=== PATIENT | female | born 1990 | race Caucasian/White ===

== ENCOUNTER 2024-02-02 07:31 | Inpatient (IN) ==
[2024-02-02] MEDS ORDERED: INSULIN REGULAR 250 UNITS in SODIUM CHLORIDE 0.9% 247.5 ML IV PRN (07:42)
[2024-02-02] MEDS ORDERED: DEXTROSE 5% 1,000 ML IV PRN (07:42)
[2024-02-02] MEDS ORDERED: DEXTROSE 50% 50 ML SYRINGE IV PRN (07:42)
[2024-02-02] MEDS ORDERED: SODIUM CHLORIDE 0.9% 1,000 ML IV PRN (07:42)
[2024-02-02] MEDS ORDERED: OXYTOCIN 30 UNITS/NSS 30 UNITS/500 ML BAG IV PRN ×3 (07:42→22:06)
[2024-02-02] MEDS ORDERED: LIDOCAINE 1% LOCAL 20 ML VIAL INFIL PRN (07:42)
[2024-02-02] MEDS ORDERED: Patient's HEIGHT &/or WEIGHT Needed SCH (08:00)
[2024-02-02 08:07] LABS: Hematocrit (blood only) 33.4 % (37.0-47.0); Hemoglobin 11.3 g/dl (12.0-16.0); Mean Corpuscular Hemoglobin 30.6 pg (25.0-34.0); Mean Corpuscular Hgb Conc 33.8 g/dL (32.0-36.0); Mean Corpuscular Volume 90.5 fL (80.0-100.0); Mean Platelet Volume 11.1 fL (9.4-12.4); Platelet Count 217 K/uL (130-400); RDW Coefficient of Variation 12.8 % (11.5-14.5); RDW Standard Deviation 41.5 fL (36.4-46.3); Red Blood Count 3.69 M/uL (4.20-5.40); White Blood Count 8.05 K/ul (4.8-10.8)
[2024-02-02] MEDS: LACTATED RINGER'S 1,000 ML IV PRN (09:03)
[2024-02-02] MEDS: OXYTOCIN 30 UNITS/NSS 30 UNITS/500 ML BAG IV PRN (09:08)
--- NOTE | 2024-02-02 09:41 | History & Physical Report ---
Date of Service February 02, 2024 Assessment & Plan (1) Encounter for induction of labor: Plan: Patient is a 33yo at 38w1d here admitted for induction of labor. Diop bulb placed Receiving Pitocin Receiving LR 1L, 125cc/hr AROM when indicated Monitor tracing, currently category 1 Admission and Anticipated Discharge Date Admission Date: February 02, 2024 History of Present Illness Chief Complaint: induction of labor Primary Care Provider: Katherine Landaverde PA-C Patient is a 33yo at 38w1d here admitted for induction of labor. Has gestational DM treated by nightly insulin, otherwise endorses has been relatively uneventful and uncomplicated. Diop bulb placed this AM. Patient endorses baby has been moving frequently. Notes intermittent contractions. Denies vaginal bleeding or other vaginal discharge. Had a normal bowel movement this morning, urination this morning as well. Denies any recent fever, body aches, chills, headache, vision changes, chest pain, SOB, abdominal pain, LE pain/swelling, or numbness/tingling. GBS neg, Rh+, T. pallidum neg Allergies Allergy/AdvReac Type Severity Reaction Status Date / Time No Known Allergies Allergy Verified 02/01/24 10:59 Home Medications Medication Instructions Recorded Confirmed Type acetone (urine) test (Ketone Urine #50 ea 08/24/23 02/01/24 Rx Test strips) blood sugar diagnostic (OneTouch #150 ea 08/24/23 02/01/24 Rx Verio test strips) lancets 33 gauge (OneTouch Delica #150 ea 08/24/23 02/01/24 Rx Plus Lancet) blood-glucose meter (OneTouch #1 ea 08/25/23 02/01/24 Rx Verio Reflect Meter) vits no.124-ferrous fum 1 tab PO DAILY 09/27/23 02/01/24 History 27 mg iron-folic acid 800 mcg tablet ( Vitamin) ferrous sulfate, dried 160 mg (50 160 mg PO DAILY 10/06/23 02/01/24 History mg iron) tablet,extended release pen needle, diabetic 32 gauge x #100 ea 10/12/23 02/01/24 Rx 5/32" (BD Corina 2nd Gen Pen Needle) insulin NPH isoph U-100 human 100 See Rx Instructions .Route 08/16/24 10/21/24 Rx unit/mL (3 mL) subcutaneous pen .COMPLEX #15 mL (Novolin N FlexPen) Patient History Medical History Human papilloma virus Anemia Anxiety History of chicken pox Surgical History H/O LEEP 2013, also hx of abnl paps in the 2007- Hx of tonsillectomy Family History Aunt Breast cancer paternal Grandmother (Maternal) Breast cancer Father Pancreatic cancer metastasized to intra-abdominal lymph node Mother Atrial fibrillation Tricuspid incompetence Denies family history of Ovarian cancer Prostate cancer Myocardial infarction Colorectal cancer Social History (Updated 02/02/24 @ 10:20 by Diogenes Salazar DO) Smoking Status: Never smoker Second Hand Exposure: No; Do You Dip or Chew Tobacco: No; Tobacco Cessation Education Requested by Patient: No Hx Alcohol Use: No Hx Substance Use: No Preferred Language: Uzbek Communication Ability: Effective Hearing Ability: Normal Centrifuge Separator Operator Required: No Beliefs That Will Affect Care: None marital status: marital status details: Samir Olson [phone] Current Living Situation: Spouse Current Living Situation Comment: - Snow Dawson- 4 y/o current occupational status: employed current occupation: Stylist How many Children do You have: 1 Other Information That Helps Us Care for You: No Feels Safe at Home: Yes Safety Concerns: Feels Safe At This Time Assistive Devices: None Review of Systems per HPI Physical Exam Physical Exam: General: A&Ox4, resting comfortably in NAD, nontoxic in appearance Skin: warm, dry, intact HEENT: NC/AT, anicteric sclerae, conjunctiva w/o injection, moist mucous membranes Heart: +s1/s2, RRR, no m/r/g Lungs: equal air entry b/l, clear to auscultation b/l, no wheeze, rales, or rhonchi Abd: +BS, gravid, mild tenderness to palpation, no erythema or lesions Cervical: 1.5/50/-2, mid, soft; est weight 7lbs Ext: no significant swelling, no erythema or tenderness to palpation; no cyanosis or clubbing Neuro: speech intact, no facial droop, moves all extremities on command : 145 baseline HR , moderate variability, accelerations present, decelerations absent Results & Data Vital Signs (Past 12 Hours) Vital Signs Temp Pulse Resp BP 02/02/24 09:29 85 104/71 02/02/24 09:14 88 117/80 02/02/24 07:54 95 H 139/89 02/02/24 07:49 36.7 C 95 H 16 139/89 Supervising Physician Co-Signing Physician Notes Resident Physician Supervision Note: I interviewed and examined the patient. Discussed with Dr. Salazar and agree with findings and plan as documented in the note. Any exceptions or clarifications are listed here: [None] Documented By: Vika Cancino MD, FACOG Resident Activity Tracking Resident Involvement: Resident Care Provided Care Provided: OB Delivery
--- NOTE | 2024-02-02 11:28 | Anesthesiology Consultation ---
Date of Service February 02, 2024 Assessment & Plan ASA ASA2 Proposed Anesthesia Anesthesia Type: Labor Epidural Risk / Benefits Reviewed With: PT / POA / Parent / Guardian, Accepts Plan and Informed Consent Obtained History Height/Weight Height: 5 ft 8 in Weight: 95.708 kg Allergies Allergy/AdvReac Type Severity Reaction Status Date / Time No Known Allergies Allergy Verified 02/01/24 10:59 Medications Home Medications Medication Instructions Recorded Confirmed Last Taken acetone (urine) test (Ketone Urine #50 ea 08/24/23 02/01/24 Unknown Test strips) blood sugar diagnostic (OneTouch #150 ea 08/24/23 02/01/24 Unknown Verio test strips) lancets 33 gauge (OneTouch Delica #150 ea 08/24/23 02/01/24 Unknown Plus Lancet) blood-glucose meter (OneTouch #1 ea 08/25/23 02/01/24 Unknown Verio Reflect Meter) vits no.124-ferrous fum 1 tab PO DAILY 09/27/23 02/01/24 09/27/23 27 mg iron-folic acid 800 mcg tablet ( Vitamin) ferrous sulfate, dried 160 mg (50 160 mg PO DAILY 10/06/23 02/01/24 Unknown mg iron) tablet,extended release pen needle, diabetic 32 gauge x #100 ea 10/12/23 02/01/24 Unknown " (BD Corina 2nd Gen Pen Needle) insulin NPH isoph U-100 human 100 See Rx Instructions .Route 11/27/23 02/01/24 Unknown unit/mL (3 mL) subcutaneous pen .COMPLEX #15 mL (Novolin N FlexPen) Active Medications Generic Name Dose Route Start Last Admin Trade Name Freq PRN Reason Stop Dose Admin Lactated Ringer's 1,000 mls @ 125 mls/hr 02/02/24 07:42 02/02/24 15:02 Lr IV 02/04/24 07:41 50 mls/hr .Q8H PRN Infusion L&D Protocol Protocol Oxytocin 30 units in 500 mls @ 10 mls/hr 02/02/24 08:18 02/02/24 12:00 Pitocin 30 Units/Nss IV 02/04/24 08:17 0.6 units/hr .Q24H PRN 10 mls/hr Labor Induction/Augmentation Titration Protocol 0.6 UNITS/HR Past Medical History Medical History Human papilloma virus Anemia Anxiety History of chicken pox Exercise / Class Metabolic Activity II 4-5 Yardwork/Stairs/Walk up hill Past Family History Family History Aunt Breast cancer paternal Grandmother (Maternal) Breast cancer Father Pancreatic cancer metastasized to intra-abdominal lymph node Mother Atrial fibrillation Tricuspid incompetence Denies family history of Ovarian cancer Prostate cancer Myocardial infarction Colorectal cancer Past Surgical History Surgical History H/O LEEP 2013, also hx of abnl paps in the 2008-01 Hx of tonsillectomy Past Anesthesia History No Hx of Anesthesia Complications and No Family Hx of Anesthesia Complications History of PONV No Hx of PONV and No Hx of Motion Sickness Social History Smoking Status: Never smoker Do You Dip or Chew Tobacco: No Hx Alcohol Use: No Hx Substance Use: No substance use type: does not use Review of Systems denies fever/cough/ colds/ chest pain/ SOB/ ARCENIO denies ARCENIO Physical Exam Vital Signs Last Vital Signs Temp 36.7 C 02/02/24 13:00 Pulse 96 H 02/02/24 15:19 Resp 16 02/02/24 11:01 BP 123/82 02/02/24 15:19 Pulse Ox 99 02/02/24 15:15 ENMT Mouth: no TMJ abnormality and no dentition abnormality Thyromental Distance: > or= 3.5 Finger Breadths Mallampati Class: II Neck neck extension not limited Respiratory normal respiratory effort; no respiratory distress Auscultation: lungs clear to auscultation bilaterally Cardiovascular Rate/Rhythm: regular rate and regular rhythm Neurologic moves all extremities Psychiatric Orientation: alert and oriented x 3 Testing Laboratory Results 02/02/24 07:50 02/02/24 02/02/24 02/02/24 13:08 11:06 09:12 POC Glucose 88 90 92
[2024-02-02] MEDS ORDERED: fentaNYL citrate PF 100 MCG/2 ML VIAL EPI PRN (11:29)
[2024-02-02] MEDS ORDERED: NALOXONE HCL 0.4 MG/1 ML VIAL/CARP IV PRN (11:29)
[2024-02-02] MEDS ORDERED: ROPIVACAINE 0.5% PF 5 MG/ML 20 ML VIAL EPI PRN (11:29)
[2024-02-02] MEDS ORDERED: BUPIVACAINE 0.25% PF 30 ML VIAL EPI PRN (11:29)
[2024-02-02] MEDS ORDERED: diphenhydrAMINE 50 MG/ML VIAL IV PRN (11:29)
[2024-02-02] MEDS ORDERED: NALBUPHINE HCL INJ 10 MG/ML AMP IV PRN (11:29)
[2024-02-02] MEDS ORDERED: ONDANSETRON INJ 2 MG/ML 2 ML VIAL IV PRN (11:29)
[2024-02-02] MEDS ORDERED: SODIUM CHLORIDE 0.9% PF INJ 10 ML VIAL EPI PRN (11:29)
[2024-02-02] MEDS ORDERED: LIDOCAINE 2% MPF LOCAL 5 ML VIAL EPI PRN (11:29)
[2024-02-02] MEDS ORDERED: NALOXONE HCL 1 MG in SODIUM CHLORIDE 0.9% 1,000 ML IV PRN (11:29)
[2024-02-02] MEDS ORDERED: fentANYL 2 MCG/ML BUPIVacaine 0.125%-NSS 100ML BAG EPI PRN (11:29)
[2024-02-02] MEDS ORDERED: ePHEDrine sulfate 50 MG/ML AMP IV PRN (11:29)
--- NOTE | 2024-02-02 13:14 | Labor Progress Brief Note ---
Date of Service February 02, 2024 Subjective Reason For Note: Routine Evaluation cervical balloon delivered at 1130 pitocin at 10 milliunits cervix 4/80/-2 AROM for copious amount of clear fluid Assessment & Plan Admission and Anticipated Discharge Date Admission Date: February 02, 2024 Physical Exam Constitutional: WD/WN, vitals as above Psychiatric: A+Ox3, euthymic affect Genitourinary: OB Exam Monitor Tracing: + external FHT monitor used, + external uterine monitor used, + category I and + normal FHT variability Results & Data Vital Signs (Past 12 Hours) Vital Signs Temp Pulse Resp BP Pulse Ox 02/02/24 13:07 88 100 02/02/24 13:00 98.1 F 83 132/86 02/02/24 12:30 93 H 134/85 02/02/24 12:15 91 H 125/83 02/02/24 12:00 89 133/85 02/02/24 11:44 99 H 123/82 02/02/24 11:14 86 122/82 02/02/24 11:03 83 136/87 02/02/24 11:01 16 02/02/24 11:01 98.1 F 16 02/02/24 10:59 93 H 129/92 02/02/24 10:44 90 133/89 02/02/24 10:16 85 116/78 02/02/24 10:01 84 125/83 02/02/24 09:45 88 126/82 02/02/24 09:29 85 104/71 02/02/24 09:14 88 117/80 02/02/24 07:54 95 H 139/89 02/02/24 07:49 98.1 F 95 H 16 139/89 Coding Level of Care Code None
[2024-02-02] MEDS: fentANYL 2 MCG/ML BUPIVacaine 0.125%-NSS 100ML BAG ONE (15:12)
[2024-02-02] MEDS: LIDOCAINE 2%/EPINEPHRINE 1:200,000 20 ML PF ONE (15:13)
[2024-02-02] MEDS: fentaNYL citrate PF 100 MCG/2 ML VIAL ONE (15:13)
[2024-02-02] MEDS: BUPIVACAINE 0.25% PF 30 ML VIAL ONE (15:13)
[2024-02-02] MEDS: SODIUM CHLORIDE 0.9% PF INJ 10 ML VIAL ONE (15:18)
[2024-02-02] MEDS: ePHEDrine sulfate 50 MG/ML AMP ONE (15:18)
[2024-02-02 21:22] VITALS: O2SAT 100
[2024-02-02] MEDS ORDERED: ACETAMINOPHEN 325 MG TAB PO PRN (22:06)
[2024-02-02] MEDS ORDERED: bisacodyL 10 MG SUPP PR PRN (22:06)
[2024-02-02] MEDS ORDERED: HYDROCORTISONE ACETATE 25 MG SUPP PR PRN (22:06)
[2024-02-02] MEDS ORDERED: oxyCODONE/ACETAMINOPHEN 5mg/325mg TAB PO PRN (22:06)
--- NOTE | 2024-02-02 22:34 | Delivery Summary ---
Vaginal Delivery Summary Date of Service February 02, 2024 Vaginal Delivery Summary and 1st Degree LAC (vaginal + terry-clitoral tear) Patient is a 33-year-old 3 para 1-1-0-1 female who presented at 38 and 1 sevenths weeks for induction of labor because of prior demise. After cervical balloon was placed, Pitocin induction was begun. After the cervical balloon was delivered, membranes were ruptured for copious amount of clear fluid. She received effective epidural analgesia. She progressed to full dilation with the urge to push. She pushed effectively through 3 contractions for delivery of a viable male infant. After the head was delivered, there was a loose nuchal cord that reduced spontaneously as the rest the infant delivered quickly after the head was delivered. There was a true knot in the cord as well. He was placed on the mother's abdomen for further attention and drying. He was crying vigorously moving all 4 limbs. After 1 minute, the cord was clamped and cut. After cord blood was obtained, the placenta was expressed intact with a three-vessel cord. bleeding was controlled with dilute Pitocin and fundal massage. A periclitoral tear was bleeding and therefore repaired with 3-0 chromic. A first-degree vaginal tear was also repaired with 2-0 chromic. A skin tag near the bottom of the left labia majora was removed per patient's request. Bleeding was controlled at the site with silver nitrate and direct pressure. Mother and infant were doing well after delivery, QBL is 548 mL. [facility] Vaginal Delivery Charge Delivery Type Details: and 1st Degree LAC (vaginal + terry-clitoral tear)
[2024-02-02] MEDS: IBUPROFEN 600 MG TAB PO PRN (23:34)
[2024-02-02] MEDS: BENZOCAINE 20% SPRY 85 APPLN/85 GM CAN EXT PRN (23:35)
[2024-02-02] MEDS: SODIUM CHLORIDE 0.9% PF INJ 10 ML VIAL EPI STA (23:58)
[2024-02-02] MEDS: fentaNYL citrate PF 100 MCG/2 ML VIAL EPI STA (23:58)
[2024-02-02] MEDS: LIDOCAINE 2%/EPINEPHRINE 1:200,000 20 ML PF EPI STA (23:58)
[2024-02-02] MEDS: BUPIVACAINE 0.25% PF 30 ML VIAL EPI STA (23:58)
[2024-02-02] MEDS: SILVER NITR/POTASSIUM NITRATE APPLICATOR ONE (23:59)
[2024-02-03] MEDS: DIPHTHER/TETAN/PERTUS Vaccine (Tdap, Adol/Adult) 0.5mL IM ONE (00:50)
--- NOTE | 2024-02-03 06:00 | Obstetrical Progress Note ---
Date of Service <Diogenes Salazar DO - Last Filed: 02/03/24 07:08> February 03, 2024 Assessment & Plan <Diogenes Salazar DO - Last Filed: 02/03/24 07:08> (1) state: Patient is a 33yo pp day 1 s/p with 1st Degree LAC (vaginal + terry- clitoral tear) Feeling well today, VSS Continue care Ambulation and as tolerated Pain control Hgb: 11.3 -> 9.6, asymptomatic Home: tomorrow or next day Follow up with Dr. Cancino in 6wks (2) Obstetric vaginal laceration: repaired in the usual standard fashion monitor for signs of infection pain control as needed Perineal laceration presence: without perineal laceration Qualified Code(s): O71.4 - Obstetric high vaginal laceration alone <Vika Cancino MD, FACOG - Last Filed: 02/03/24 09:51> (1) state: (2) Obstetric vaginal laceration: Subjective <Diogenes Salazar DO - Last Filed: 02/03/24 07:08> Patient is a 33yo pp day 1 s/p with 1st Degree LAC (vaginal + terry- clitoral tear) Ambulation: yes Voiding: urinating, no BM yet Passing gas: yes Diet tolerance: yes, OB reg Lochia: decreasing Feeding type: breast, bottle if necessary Current pain: minimal Resting comfortably this AM in NAD. Denies fever, chills, headache, vision changes, chest pain, SOB, abdominal pain, LE pain/swelling, or LE numbness/tingling. Review of Systems as above Physical Exam <Diogenes Salazar DO - Last Filed: 02/03/24 07:08> General: A&Ox4, resting comfortably in NAD, nontoxic in appearance Skin: warm, dry, intact HEENT: NC/AT, anicteric sclerae, conjunctiva w/o injection, moist mucous membranes Heart: +s1/s2, RRR, no m/r/g Lungs: equal air entry b/l, clear to auscultation b/l, no wheeze, rales, or rhonchi Abd: +BS, uterine fundus firm at level of umbilicus just left of midline Ext: no significant swelling, no erythema or tenderness to palpation; no cyanosis or clubbing Neuro: speech intact, no facial droop, moves all extremities on command Results & Data <Diogenes Salazar DO - Last Filed: 02/03/24 07:08> Vital Signs (Past 12 Hours) Vital Signs Temp Pulse Pulse Resp BP BP Pulse Ox 02/03/24 05:35 36.4 C L 70 18 113/74 02/03/24 01:10 36.7 C 89 18 116/78 02/02/24 23:56 88 126/71 02/02/24 23:41 83 122/72 02/02/24 23:30 18 02/02/24 23:26 83 119/77 02/02/24 23:11 88 110/73 02/02/24 22:55 75 118/68 02/02/24 22:45 36.7 C 18 02/02/24 22:16 81 123/74 02/02/24 22:00 18 02/02/24 22:00 87 125/76 02/02/24 21:49 80 123/80 02/02/24 21:35 98 H 100 02/02/24 21:30 99 H 100 02/02/24 21:25 102 H 100 02/02/24 21:20 100 02/02/24 21:20 109 H 02/02/24 21:20 113 H 148/94 H 02/02/24 21:15 91 H 99 02/02/24 21:10 98 H 99 02/02/24 21:05 95 H 100 02/02/24 21:04 100 H 135/88 02/02/24 21:00 103 H 18 99 02/02/24 20:55 86 98 02/02/24 20:50 91 H 133/82 98 02/02/24 20:45 96 H 99 02/02/24 20:40 96 H 99 02/02/24 20:35 100 02/02/24 20:35 107 H 02/02/24 20:35 102 H 154/95 H 02/02/24 20:30 104 H 18 99 02/02/24 20:25 98 H 98 02/02/24 20:20 93 H 98 02/02/24 20:15 98 H 98 02/02/24 20:10 101 H 98 02/02/24 20:05 95 H 97 02/02/24 20:04 92 H 130/82 02/02/24 20:00 100 H 18 98 02/02/24 19:55 88 97 02/02/24 19:50 90 97 02/02/24 19:49 101 H 128/82 02/02/24 19:45 92 H 97 02/02/24 19:40 92 H 98 02/02/24 19:35 93 H 97 02/02/24 19:34 93 H 129/90 02/02/24 19:30 37.2 C 100 H 18 97 02/02/24 19:25 94 H 97 02/02/24 19:20 92 H 97 02/02/24 19:19 89 126/81 02/02/24 19:15 88 97 02/02/24 19:10 90 97 02/02/24 19:05 89 97 02/02/24 19:04 93 H 137/85 02/02/24 19:00 93 H 16 97 02/02/24 18:55 89 98 02/02/24 18:50 95 H 131/81 99 02/02/24 18:45 96 H 98 02/02/24 18:40 90 99 02/02/24 18:35 90 100 02/02/24 18:34 86 136/83 02/02/24 18:30 90 18 98 02/02/24 18:25 86 100 02/02/24 18:20 83 100 02/02/24 18:19 83 136/84 02/02/24 18:15 88 100 02/02/24 18:10 89 100 02/02/24 18:05 85 98 02/02/24 18:04 90 147/91 H 02/02/24 18:00 87 16 100 O2 Del Method 02/03/24 05:35 Room Air 02/03/24 01:10 Room Air 02/02/24 23:56 02/02/24 23:41 02/02/24 23:30 02/02/24 23:26 02/02/24 23:11 02/02/24 22:55 02/02/24 22:45 02/02/24 22:16 02/02/24 22:00 02/02/24 22:00 02/02/24 21:49 10/22/24 21:35 02/02/24 21:30 02/02/24 21:25 02/02/24 21:20 02/02/24 21:20 02/02/24 21:20 02/02/24 21:15 02/02/24 21:10 02/02/24 21:05 02/02/24 21:04 02/02/24 21:00 02/02/24 20:55 02/02/24 20:50 02/02/24 20:45 02/02/24 20:40 02/02/24 20:35 02/02/24 20:35 02/02/24 20:35 02/02/24 20:30 02/02/24 20:25 02/02/24 20:20 02/02/24 20:15 02/02/24 20:10 02/02/24 20:05 02/02/24 20:04 02/02/24 20:00 02/02/24 19:55 02/02/24 19:50 02/02/24 19:49 02/02/24 19:45 02/02/24 19:40 02/02/24 19:35 02/02/24 19:34 02/02/24 19:30 02/02/24 19:25 02/02/24 19:20 02/02/24 19:19 02/02/24 19:15 02/02/24 19:10 02/02/24 19:05 02/02/24 19:04 02/02/24 19:00 02/02/24 18:55 02/02/24 18:50 02/02/24 18:45 02/02/24 18:40 02/02/24 18:35 02/02/24 18:34 02/02/24 18:30 02/02/24 18:25 02/02/24 18:20 02/02/24 18:19 02/02/24 18:15 02/02/24 18:10 02/02/24 18:05 02/02/24 18:04 02/02/24 18:00 Supervising Physician <Vika Cancino MD, FACOG - Last Filed: 02/03/24 09:51> Co-Signing Physician Notes Resident Physician Supervision Note: I interviewed and examined the patient. Discussed with Dr. Salazar and agree with findings and plan as documented in the note. Any exceptions or clarifications are listed here: [None] Documented By: Vika Cancino MD, FACOG Resident Activity Tracking <Diogenes Salazar, DO - Last Filed: 02/03/24 07:08> Resident Involvement: Resident Care Provided Care Provided: OB Delivery
[2024-02-03 06:14] LABS: Hematocrit (blood only) 28.1 % (37.0-47.0); Hemoglobin 9.6 g/dl (12.0-16.0); Mean Corpuscular Hemoglobin 30.7 pg (25.0-34.0); Mean Corpuscular Hgb Conc 34.2 g/dL (32.0-36.0); Mean Corpuscular Volume 89.8 fL (80.0-100.0); Mean Platelet Volume 11.3 fL (9.4-12.4); Platelet Count 189 K/uL (130-400); RDW Coefficient of Variation 12.3 % (11.5-14.5); RDW Standard Deviation 39.8 fL (36.4-46.3); Red Blood Count 3.13 M/uL (4.20-5.40); White Blood Count 9.78 K/ul (4.8-10.8)
[2024-02-03] MEDS: ACETAMINOPHEN 500 MG TAB PO PRN (08:47)
[2024-02-03] MEDS: PRENATAL VITAMIN 1 TAB PO SCH (08:47)
[2024-02-03] MEDS: DOCUSATE SODIUM 100 MG CAP PO SCH (08:47)
--- NOTE | 2024-02-03 09:26 | Anesthesia Procedure Note ---
Date of Service February 03, 2024 Anesthesia Post Epidural Note Vital Signs Vital Signs: Temp Pulse Resp BP Pulse Ox O2 Del Method 36.4 C L 70 18 113/74 100 Room Air 02/03/24 05:35 02/03/24 05:35 02/03/24 05:35 02/03/24 05:35 02/02/24 21:35 02/03/24 05:35 Pain Intensity Bilateral Episiotomy/Laceration: Pain Intensity: 1 Notes Mental Status: alert / awake / arousable and participated in evaluation Nausea / Vomiting: adequately controlled Pain: adequately controlled Airway Patency, RR, SpO2: stable & adequate BP & HR: stable & adequate Hydration State: stable & adequate Neuraxial Anesthesia: was administered and sensory block is resolving Anesthetic Complications: no major complications apparent Epidural: Removed without complications and With tip intact
[2024-02-03] MEDS: SIMETHICONE 80 MG CHEW PO PRN (17:08)
[2024-02-03] MEDS: bisacodyL 5 MG TABEC PO SCH (20:19)
[2024-02-03] MEDS: busPIRone 5 MG TAB PO SCH (20:19)
[2024-02-03 21:14] VITALS: PULSE 85; RESP 20; TEMP 98.2
[2024-02-03 21:40] VITALS: BP 149/90
== END 2024-02-03 22:19 | disposition home or self-care (01) | DRG 768 ==
LOC: 4S1 07:31 → 4S4 02-03 01:04 → 4E2 02-03 05:42